=== PATIENT | male | born 1945 | race Caucasian/White ===

== ENCOUNTER 2018-09-09 08:00 | Day surgery (SDC) | payer OTHER ==
[~2018-09-09 08:00] MED LIST: AMILODIPINE PO; PLAVIX75 MG PO; [UNRECOGNIZED DRUG - OTHER] PO
[2018-09-09] MEDS ORDERED: COLACE100 MG PO (10:26)
[2018-09-09] MEDS ORDERED: PERCOCET 5-3251 EACH PO (10:26)
== END 2018-09-09 13:35 | disposition home or self-care (01) ==
LOC: CIR.AMB 08:00
DX: K60.3 Anal fistula (principal)

== ENCOUNTER 2018-11-10 10:12 | Outpatient (CLI) | payer OTHER ==
[~2018-11-10 10:12] MED LIST changes: +COLACE100 MG PO; +PERCOCET 5-3251 EACH PO
== END 2018-11-10 15:00 | disposition home or self-care (01) ==
LOC: LAB 10:12
DX: K60.3 Anal fistula (principal); K62.89 Other specified diseases of anus and rectum; K57.30 Diverticulosis of large intestine without perforation or abscess without bleeding

== ENCOUNTER 2018-11-18 06:00 | Day surgery (SDC) | payer OTHER ==
[2018-11-18] MEDS ORDERED: COLACE100 MG PO (10:21)
[2018-11-18] MEDS ORDERED: PERCOCET 5-3251 EACH PO (10:21)
== END 2018-11-18 15:45 | disposition home or self-care (01) ==
LOC: CIR.AMB 06:00
DX: K60.3 Anal fistula (principal)